=== PATIENT | male | born 1970 | race Caucasian/White ===

== ENCOUNTER 2019-06-02 08:54 | Inpatient (IN) | payer OTHER ==
[2019-06-02 10:22] VITALS: BMI 30.7
--- NOTE | 2019-06-02 11:26 | HP ---
CIWA Score Nausea/Vomitin Muscle Tremors: 3 Anxiety: 3 Agitation: 3 Paroxysmal Sweats: 2 Orientation: 0-Oriented Tacttile Disturbances: 2-Mild Itch/Numbness/Burn Auditory Disturbances: 0-None Visual Disturbances: 1-Very Mild Sensitivity Headache: 3-Moderate CIWA-Ar Total Score: 19 - Admission Criteria OASAS Guidelines: Admission for Medically Managed Detox: Requires at least one of the followin. CIWA greater than 12 2. Seizures within the past 24 hours 3. Delirium tremens within the past 24 hours 4. Hallucinations within the past 24 hours 5. Acute intervention needed for co occurring medical disorder 6. Acute intervention needed for co occurring psychiatric disorder 7. Severe withdrawal that cannot be handled at a lower level of care (continued vomiting, continued diarrhea, abnormal vital signs) requiring intravenous medication and/or fluids 8. Patient presents the following: CIWA greater than 12 Admission Criteria Met: Admission criteria met Admitting History and Physical - Smoking History Smoking history: Current every day smoker Have you smoked in the past 12 months: Yes Aproximately how many cigarettes per day: 30 Admission ROS [facility] Chief Complaint: I want detox and rehab Allergies/Adverse Reactions: Allergies Allergy/AdvReac Type Severity Reaction Status Date / Time No Known Allergies Allergy Verified 06/02/19 10:19 History of Present Illness: 49 year old man with no h/o detox presents for detox, he reports a blackout last night, was sent to [facility] where he was monitored overnight and sent here, denies ever having a seizure. Exam Limitations: No Limitations - Ebola screening Have you traveled outside of the country in the last 21 days: No Have you had contact with anyone from an Ebola affected area: No Have you been sick,other than usual withdrawal symptoms: No Do you have a fever: No - Review of Systems Constitutional: Malaise, Weakness EENT: reports: No Symptoms Reported Respiratory: reports: No Symptoms reported Cardiac: reports: Lightheadedness GI: reports: Nausea, Poor Fluid Intake, Vomiting, Abdominal cramping : reports: No Symptoms Reported Musculoskeletal: reports: Muscle Pain, Muscle Weakness Integumentary: reports: Flushing, Sweating Neuro: reports: Headache, Numbness, Tremors Endocrine: reports: No Symptoms Reported Hematology: reports: No Symptoms Reported Psychiatric: reports: Anxious, Depressed Other Systems: Reviewed and Negative Patient History - Patient Medical History Hx Anemia: No Hx Asthma: No Hx Chronic Obstructive Pulmonary Disease (COPD): No Hx Cancer: No Hx Cardiac Disorders: No Hx Congestive Heart Failure: No Hx Hypertension: No Hx Hypercholesterolemia: No Hx Pacemaker: No HX Cerebrovascular Accident: No Hx Seizures: No Hx Dementia: No Hx Diabetes: No Hx Gastrointestinal Disorders: No Hx Liver Disease: No Hx Genitourinary Disorders: No Hx Sexually Transmitted Disorders: No Hx Renal Disease (ESRD): No Hx Thyroid Disease: No Hx Human Immunodeficiency Virus (HIV): No Hx Hepatitis C: No Hx Depression: Yes Hx Suicide Attempt: No Hx Bipolar Disorder: Yes (reports lithium use) Hx Schizophrenia: No - Patient Surgical History Past Surgical History: No - PPD History Previous Implant?: Yes Documented Results: Negative w/o proof Implanted On Prior [facility] Admission?: No PPD to be Administered?: Yes - Smoking Cessation Smoking history: Current every day smoker Have you smoked in the past 12 months: Yes Aproximately how many cigarettes per day: 10 Hx Chewing Tobacco Use: No Initiated information on smoking cessation: Yes 'Breaking Loose' booklet given: 06/02/19 - Substances abused Alcohol Substance route: Oral Frequency: Daily Amount used: 2 pints of Michelle Age of first use: 16 Date of last use: 06/01/19 Admission Physical Exam [facility] - Vital Signs Vital Signs: Vital Signs - 24 hr 06/02/19 10:20 Temperature 97.7 F Pulse Rate 87 Respiratory 16 Rate Blood Pressure 116/84 - Physical General Appearance: Yes: Obese, Sweating HEENTM: Yes: Hearing grossly Normal, Normal ENT Inspection, Normocephalic, Normal Voice, Pharynx Normal, Tm's normal Respiratory: Yes: Chest Non-Tender, Normal Breath Sounds, No Respiratory Distress, No Accessory Muscle Use Neck: Yes: No masses,lesions,Nodules, Supple Breast: Yes: Breast Exam Deferred Cardiology: Yes: Regular Rhythm, Regular Rate, S1, S2 Abdominal: Yes: Normal Bowel Sounds, Non Tender, Protuberent Genitourinary: Yes: Within Normal Limits Back: Yes: Normal Inspection Musculoskeletal: Yes: Muscle Pain, Muscle weakness Extremities: Yes: Non-Tender, Tremors 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 NML intact, Fully Oriented, Alert, Normal Mood/Affect, Normal Response Integumentary: Yes: Moist Lymphatic: Yes: Within Normal Limits - Diagnostic (1) Alcohol dependence, uncomplicated Current Visit: Yes Status: Acute (2) Nicotine dependence with withdrawal Current Visit: Yes Status: Acute Qualifiers: Nicotine product type: cigarettes Qualified Code(s): F17.213 - Nicotine dependence, cigarettes, with withdrawal Cleared for Admission S - Detox or Rehab [facility] Level of Care: Medically Managed Detox Regimen/Protocol: Librium Claeared for Rehab Admission: No Breathalyzer - Breathalyzer Breathalyzer: 0 Urine Drug Screen - Test Device Lot number: [id number] Expiration date: 02/23/21 - Control Is test valid?: Yes - Results Drug screen NEGATIVE: Yes Inpatient Rehab Admission - Rehab Decision to Admit Inpatient rehab admission?: No
[2019-06-02] MEDS ORDERED: METHOCARBAMOL 500 MG TABLET PO PRN (11:32)
[2019-06-02] MEDS ORDERED: MAGNESIUM CITRATE 300 ML BOTTLE PO PRN (11:32)
[2019-06-02] MEDS ORDERED: ONDANSETRON *ODT* 4 MG TABLET SL ONE (11:32)
[2019-06-02] MEDS ORDERED: ACETAMINOPHEN 325 MG TABLET (FP) PO PRN ×2 (11:32)
[2019-06-02] MEDS ORDERED: BISMUTH SUBSALICYLATE 524 MG/30 ML UD PO PRN (11:32)
[2019-06-02] MEDS ORDERED: MAG HYDROX/AL HYDROX/SIMETH 30 ML UNIT-DOSE CUP PO PRN (11:32)
[2019-06-02] MEDS ORDERED: MENTHOL/PHENOL 1 EACH UD MM PRN (11:32)
[2019-06-02] MEDS ORDERED: IBUPROFEN 400 MG TABLET (FP) PO PRN (11:32)
[2019-06-02] MEDS ORDERED: MAGNESIUM HYDROX 2400MG/30ML ORAL SUSPENSION 30 ML CUP PO PRN (11:32)
[2019-06-02] MEDS ORDERED: chlordiazePOXIDE HCL 10 MG CAPSULE PO PRN (11:32)
[2019-06-02] MEDS ORDERED: NICOTINE POLACRILEX 2 MG GUM BUC PRN (11:32)
[2019-06-02] MEDS: chlordiazePOXIDE HCL 25 MG CAPSULE PO SCH ×2 (12:43→22:40)
[2019-06-02] MEDS: hydrOXYzine PAMOATE 25 MG CAPSULE (FP) PO SCH ×3 (14:30→22:40)
[2019-06-02] MEDS: MELATONIN 5 MG TABLETS PO SCH (22:40)
[2019-06-02] MEDS: THIAMINE HCL 100 MG TABLET (FP) PO SCH (22:41)
[2019-06-03] MEDS: hydrOXYzine PAMOATE 25 MG CAPSULE (FP) PO SCH ×5 (06:08→22:25)
[2019-06-03] MEDS: chlordiazePOXIDE HCL 25 MG CAPSULE PO SCH ×3 (06:08→22:24)
--- NOTE | 2019-06-03 10:00 | CONSULT ---
[facility] Psychiatric Consult - Data Date of interview: 06/03/19 Admission source: [facility] Identifying data: Mr De Santiago is a 49 years old single male, father of 3 sons, unemployed receiving SSI, homeless seeking detox treatment for alcohol Substance Abuse History: Reports history of alcohol use. Refer to addiction counselor's summary for further information Medical History: Unremarkable. Smokes 10 cigarettes daily Psychiatric History: Reports that his firsts psychiatric contact occured at age 26 when he was admitted to [facility] in [place] for paranoia in the context of cocaine intoxication. He said that he was diagnosed with Bipolar Disorder and started on [place]. Reports multiple subsequent psychiatric hospitalizations at mostly [facility] and [facility] in [place]. Reports most recent psychiatric admission was in 2018 to [facility] and he was discharged on Hague. Reports chronic non adherence to OPD care and medications. Claims that has not seen psychiatrist nor taking medication since his most recent hospital discharge. Reports one previous suicidal attempt in 2000via overdose on medications. At present, denies experi encing psychotic, manic or depressive symptoms, S/H ideations. 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 [place] a few days ago Physical/Sexual Abuse/Trauma History: Denies history of abuse as a child or DV relationship as an adult Mental Status Exam - Mental Status Exam Alert and Oriented to: Time, Place, Person Cognitive Function: Fair Patient Appearance: Disheveled Mood: Hopeful, Euthymic Affect: Constricted Patient Behavior: Cooperative Speech Pattern: Clear Voice Loudness: Normal Thought Process: Intact, Goal Oriented Thought Disorder: Not Present Hallucinations: Denies Suicidal Ideation: Denies Homicidal Ideation: Denies Insight/Judgement: Poor Sleep: Well Appetite: Good Muscle strength/Tone: Normal Gait/Station: Normal Psychiatric Findings - Problem List ([place] 1, 2,3) (1) Bipolar disorder Current Visit: Yes Status: Chronic (2) Alcohol dependence, uncomplicated Current Visit: Yes Status: Acute (3) Nicotine dependence with withdrawal Current Visit: Yes Status: Acute Qualifiers: Nicotine product type: cigarettes Qualified Code(s): F17.213 - Nicotine dependence, cigarettes, with withdrawal - Initial Treatment Plan Initial Treatment Plan: Continue inpatient detoxification
[2019-06-03 10:21] LABS: HEMATOCRIT 43.5 % (35.4-49); HEMOGLOBIN 15.3 GM/dL (11.7-16.9); MCH 33.1 pg (25.7-33.7); MEAN CELL VOLUME 94.6 fl (80-96); MEAN PLT VOLUME 8.1 fl (7.5-11.1); PLATELET COUNT 196 K/MM3 (134-434); RDW 13.5 % (11.9-15.9); WHITE BLOOD COUNT 6.8 K/mm3 (4.0-10.0)
--- NOTE | 2019-06-03 10:28 | PN ---
S CIWA - CIWA Score Nausea/Vomitin-Mild Nausea/No Vomiting Muscle Tremors: 2 Anxiety: 2 Agitation: 2 Paroxysmal Sweats: No Perspiration Orientation: 0-Oriented Tacttile Disturbances: 1-Very Mild Itch/Numbness Auditory Disturbances: 0-None Visual Disturbances: 0-None Headache: 2-Mild CIWA-Ar Total Score: 10 S Progress Note (SOAP) Subjective: alert,irritable,anxious,interrupted sleep,pain in the body Objective: 06/03/19 10:26 Vital Signs Temperature 97.4 F L 06/03/19 05:30 Pulse Rate 59 L 06/03/19 05:30 Respiratory Rate 18 06/03/19 05:30 Blood Pressure 136/65 06/03/19 05:30 O2 Sat by Pulse Oximetry (%) Laboratory Last Values WBC 6.8 K/mm3 (4.0-10.0) 06/03/19 07:50 RBC 4.60 M/mm3 (4.00-5.60) 06/03/19 07:50 Hgb 15.3 GM/dL (11.7-16.9) 06/03/19 07:50 Hct 43.5 % (35.4-49) 06/03/19 07:50 MCV 94.6 fl (80-96) 06/03/19 07:50 MCH 33.1 pg (25.7-33.7) 06/03/19 07:50 MCHC 35.0 g/dl (32.0-35.9) 06/03/19 07:50 RDW 13.5 % (11.9-15.9) 06/03/19 07:50 Plt Count 196 K/MM3 (134-434) 06/03/19 07:50 MPV 8.1 fl (7.5-11.1) 06/03/19 07:50 labs pending Assessment: 06/03/19 10:27 withdrawalsymptom Plan: continue detox librium regimen
[2019-06-03 10:38] LABS: ALBUMIN 3.2 g/dl (3.4-5.0); BILIRUBIN,TOTAL 0.9 mg/dL (0.2-1); BLOOD UREA NITROGEN 15.2 mg/dL (7-18); CALCIUM 8.6 mg/dL (8.5-10.1); CREATININE 1.1 mg/dL (0.55-1.3); POTASSIUM 3.9 mmol/L (3.5-5.1)
[2019-06-03] MEDS: PRENATAL VITAMINS W/ FOLIC ACID TABLET (FP) PO SCH (11:02)
[2019-06-03] MEDS: NICOTINE 14 MG/24 HOURS TOPICAL PATCH TD SCH (11:03)
[2019-06-03] MEDS: THIAMINE HCL 100 MG TABLET (FP) PO SCH (22:24)
[2019-06-03] MEDS: MELATONIN 5 MG TABLETS PO SCH (22:36)
[2019-06-04] MEDS: chlordiazePOXIDE 5 MG CAPSULE PO SCH ×3 (05:27→22:13)
[2019-06-04] MEDS: hydrOXYzine PAMOATE 25 MG CAPSULE (FP) PO SCH ×5 (05:27→22:13)
--- NOTE | 2019-06-04 11:09 | PN ---
S CIWA - CIWA Score Nausea/Vomitin-Mild Nausea/No Vomiting Muscle Tremors: 2 Anxiety: 2 Agitation: 2 Paroxysmal Sweats: No Perspiration Orientation: 0-Oriented Tacttile Disturbances: 1-Very Mild Itch/Numbness Auditory Disturbances: 0-None Visual Disturbances: 0-None Headache: 1-Very Mild CIWA-Ar Total Score: 9 S Progress Note (SOAP) Subjective: alert,irritable,anxious,interrupted sleep,tremor Objective: 06/04/19 11:07 Vital Signs Temperature 97.5 F L 06/04/19 08:47 Pulse Rate 98 H 06/04/19 08:47 Respiratory Rate 18 06/04/19 08:47 Blood Pressure 115/85 06/04/19 08:47 O2 Sat by Pulse Oximetry (%) 06/04/19 11:07 Laboratory Last Values WBC 6.8 K/mm3 (4.0-10.0) 06/03/19 07:50 RBC 4.60 M/mm3 (4.00-5.60) 06/03/19 07:50 Hgb 15.3 GM/dL (11.7-16.9) 06/03/19 07:50 Hct 43.5 % (35.4-49) 06/03/19 07:50 MCV 94.6 fl (80-96) 06/03/19 07:50 MCH 33.1 pg (25.7-33.7) 06/03/19 07:50 MCHC 35.0 g/dl (32.0-35.9) 06/03/19 07:50 RDW 13.5 % (11.9-15.9) 06/03/19 07:50 Plt Count 196 K/MM3 (134-434) 06/03/19 07:50 MPV 8.1 fl (7.5-11.1) 06/03/19 07:50 Sodium 141 mmol/L (136-145) 06/03/19 07:50 Potassium 3.9 mmol/L (3.5-5.1) 06/03/19 07:50 Chloride 108 mmol/L (98-107) H 06/03/19 07:50 Carbon Dioxide 26 mmol/L (21-32) 06/03/19 07:50 Anion Gap 6 MMOL/L (8-16) L 06/03/19 07:50 BUN 15.2 mg/dL (7-18) 06/03/19 07:50 Creatinine 1.1 mg/dL (0.55-1.3) 06/03/19 07:50 Est GFR (CKD-EPI)AfAm 91.52 06/03/19 07:50 Est GFR (CKD-EPI)NonAf 78.96 06/03/19 07:50 Random Glucose 94 mg/dL (74-106) 06/03/19 07:50 Calcium 8.6 mg/dL (8.5-10.1) 06/03/19 07:50 Total Bilirubin 0.9 mg/dL (0.2-1) 06/03/19 07:50 AST 15 U/L (15-37) 06/03/19 07:50 ALT 39 U/L (13-61) 06/03/19 07:50 Alkaline Phosphatase 90 U/L (45-117) 06/03/19 07:50 Total Protein 6.0 g/dl (6.4-8.2) L 06/03/19 07:50 Albumin 3.2 g/dl (3.4-5.0) L 06/03/19 07:50 [place] 0.1 MEQ/L (0.6-1.2) L 06/03/19 07:50 RPR Titer Nonreactive (NONREACTIVE) 06/03/19 07:50 Assessment: 06/04/19 11:07 withdrawal symptom Plan: continue detox librium regimen
[2019-06-04] MEDS: PRENATAL VITAMINS W/ FOLIC ACID TABLET (FP) PO SCH (11:10)
[2019-06-04] MEDS: NICOTINE 14 MG/24 HOURS TOPICAL PATCH TD SCH (11:11)
[2019-06-04] MEDS: THIAMINE HCL 100 MG TABLET (FP) PO SCH (22:12)
[2019-06-04] MEDS: MELATONIN 5 MG TABLETS PO SCH (22:22)
[2019-06-05] MEDS ORDERED: chlordiazePOXIDE HCL 10 MG CAPSULE PO PRN
[2019-06-05] MEDS: chlordiazePOXIDE HCL 10 MG CAPSULE PO SCH ×3 (06:22→22:32)
[2019-06-05] MEDS: hydrOXYzine PAMOATE 25 MG CAPSULE (FP) PO SCH ×5 (06:22→22:32)
[2019-06-05] MEDS: PRENATAL VITAMINS W/ FOLIC ACID TABLET (FP) PO SCH (10:02)
[2019-06-05] MEDS: NICOTINE 14 MG/24 HOURS TOPICAL PATCH TD SCH (10:02)
--- NOTE | 2019-06-05 12:01 | PN ---
[facility] CIWA - CIWA Score Nausea/Vomitin-Mild Nausea/No Vomiting Muscle Tremors: 2 Anxiety: 0-No Anxiety, at Ease Agitation: 0-Normal Activity Paroxysmal Sweats: No Perspiration Orientation: 0-Oriented Tacttile Disturbances: 0-None Auditory Disturbances: 0-None Visual Disturbances: 0-None Headache: 1-Very Mild CIWA-Ar Total Score: 4 [facility] Progress Note (SOAP) Subjective: pt admitted for alcohol detox- anticipate discharge tomorrow O: Vital Signs - 24 hr 06/04/19 06/04/19 06/04/19 12:53 17:08 22:44 Temperature 98.1 F 98.9 F 98.1 F Pulse Rate 93 H 72 82 Respiratory 20 18 18 Rate Blood Pressure 112/84 118/70 139/94 06/05/19 06/05/19 06/05/19 00:38 03:39 05:30 Temperature 97.5 F L Pulse Rate 64 Respiratory 18 18 18 Rate Blood Pressure 116/74 06/05/19 08:51 Temperature 97.7 F Pulse Rate 67 Respiratory 16 Rate Blood Pressure 107/67 Laboratory Tests 06/03/19 06/03/19 06/03/19 07:50 07:50 07:50 WBC 6.8 RBC 4.60 Hgb 15.3 Hct 43.5 MCV 94.6 MCH 33.1 MCHC 35.0 RDW 13.5 Plt Count 196 MPV 8.1 Sodium 141 Potassium 3.9 Chloride 108 H Carbon Dioxide 26 Anion Gap 6 L BUN 15.2 Creatinine 1.1 Est GFR (CKD-EPI)AfAm 91.52 Est GFR (CKD-EPI)NonAf 78.96 Random Glucose 94 Calcium 8.6 Total Bilirubin 0.9 AST 15 ALT 39 Alkaline Phosphatase 90 Total Protein 6.0 L Albumin 3.2 L [place] RPR Titer Nonreactive T.pallidum Ab Interpret 06/03/19 07:50 WBC RBC Hgb Hct MCV MCH MCHC RDW Plt Count MPV Sodium Potassium Chloride Carbon Dioxide Anion Gap BUN Creatinine Est GFR (CKD-EPI)AfAm Est GFR (CKD-EPI)NonAf Random Glucose Calcium Total Bilirubin AST ALT Alkaline Phosphatase Total Protein Albumin [place] 0.1 L RPR Titer T.pallidum Ab Interpret Cancelled a/p AUD- pt to be discharged tomorrow- pt to go to [facility]
[2019-06-05] MEDS: THIAMINE HCL 100 MG TABLET (FP) PO SCH (22:32)
[2019-06-05] MEDS: MELATONIN 5 MG TABLETS PO SCH (22:32)
[2019-06-06] MEDS ORDERED: chlordiazePOXIDE HCL 10 MG CAPSULE PO ONE (05:00)
[2019-06-06] MEDS: hydrOXYzine PAMOATE 25 MG CAPSULE (FP) PO SCH ×2 (07:01→10:48)
--- NOTE | 2019-06-06 08:50 | DS ---
[facility] Detox Discharge Summary Admission Date: 06/02/19 Discharge Date: 06/06/19 - History Present History: Alcohol Dependence - Physical Exam Results Vital Signs: Vital Signs Temperature 96 F L 06/06/19 06:30 Pulse Rate 61 06/06/19 06:30 Respiratory Rate 06/06/19 06:30 Blood Pressure 96/67 06/06/19 06:30 O2 Sat by Pulse Oximetry (%) Pertinent Admission Physical Exam Findings: Vital Signs Temperature 96 F L 06/06/19 06:30 Pulse Rate 61 06/06/19 06:30 Respiratory Rate 06/06/19 06:30 Blood Pressure 96/67 06/06/19 06:30 O2 Sat by Pulse Oximetry (%) Laboratory Tests 06/03/19 06/03/19 06/03/19 07:50 07:50 07:50 WBC 6.8 RBC 4.60 Hgb 15.3 Hct 43.5 MCV 94.6 MCH 33.1 MCHC 35.0 RDW 13.5 Plt Count 196 MPV 8.1 Sodium 141 Potassium 3.9 Chloride 108 H Carbon Dioxide 26 Anion Gap 6 L BUN 15.2 Creatinine 1.1 Est GFR (CKD-EPI)AfAm 91.52 Est GFR (CKD-EPI)NonAf 78.96 Random Glucose 94 Calcium 8.6 Total Bilirubin 0.9 AST 15 ALT 39 Alkaline Phosphatase 90 Total Protein 6.0 L Albumin 3.2 L [place] RPR Titer Nonreactive T.pallidum Ab Interpret 06/03/19 07:50 WBC RBC Hgb Hct MCV MCH MCHC RDW Plt Count MPV Sodium Potassium Chloride Carbon Dioxide Anion Gap BUN Creatinine Est GFR (CKD-EPI)AfAm Est GFR (CKD-EPI)NonAf Random Glucose Calcium Total Bilirubin AST ALT Alkaline Phosphatase Total Protein Albumin [place] 0.1 L RPR Titer T.pallidum Ab Interpret Cancelled aaox3 ambulating no acute distress lungs CTA - Treatment Hospital Course: Detox Protocol Followed, Detoxed Safely, Responded well, Discharged Condition Good, Rehab Referral Accepted - Medication Discharge Medications: Ambulatory Orders [place] Carbonate [Eskalith -] 300 mg PO TID 06/02/19 - Diagnosis (1) Alcohol dependence, uncomplicated Current Visit: Yes Status: Chronic (2) Nicotine dependence with withdrawal Current Visit: Yes Status: Chronic Qualifiers: Nicotine product type: cigarettes Qualified Code(s): F17.213 - Nicotine dependence, cigarettes, with withdrawal (3) Bipolar disorder Current Visit: Yes Status: Chronic - AMA Did Patient Leave Against Medical Advice: No
[2019-06-06 09:52] VITALS: BP 111/82; PULSE 81; TEMP 96.8
[2019-06-06] MEDS: PRENATAL VITAMINS W/ FOLIC ACID TABLET (FP) PO SCH (10:48)
[2019-06-06] MEDS: NICOTINE 14 MG/24 HOURS TOPICAL PATCH TD SCH (10:49)
== END 2019-06-06 11:10 | disposition home or self-care (01) | DRG 897 ==
LOC: YASAS 08:54 → Y6N 11:10
PROVIDERS: ADMIT Allergy & Immunology; ATTEND Allergy & Immunology
PROC: HZ2ZZZZ Detoxification Services for Substance Abuse Treatment (ICD-10-PCS; principal; 2019-06-02)
DX: F10.230 Alcohol dependence with withdrawal, uncomplicated (principal); F17.213 Nicotine dependence, cigarettes, with withdrawal; F31.9 Bipolar disorder, unspecified; Z59.0 Homelessness
CPT/HCPCS: 36415; 80053; 80178; 85027; 86593